=== PATIENT | female | born 1935 | race Caucasian/White ===

== ENCOUNTER 2016-09-01 09:12 | Emergency (ER) | payer MEDICARE ==
[~2016-09-01 09:12] MED LIST: ACET500CAP PO; ALAVERT10 MG PO; BETAPACE80 PO; BIOTIN5 MG OR; BIST PO; BUSPAR10 PO; BYSTOLIC5 MG PO; CATARACTIVE OPH; CELEBREX2 PO; COREG PO; COREG6 PO; ELIQUIS 5 MG TAB5 MG PO; ESTRACE1 MG PO; EXCEDRIN EXTRA1 EACH PO; HEMOCYTE324 MG PO; LEVAQUIN750 MG PO; METAMUCIL CAN7 OZ PO; MULTIVITAMI1 PO; OSTEO BI-FLEX1 EACH PO; PHILLIPS MOM311 M1 PO; PRILO PO; PRILOSEC PO; PROBIOTIC PO; PROTONIX PO; RYTHMOL225 MG PO; STRESS600T PO; ULTRAM50 PO; VITAMIN B-121000 MC1 SL; VITAMIN D31000 UNIT PO; VOLTAREN1 % TOP
== END 2016-09-01 11:25 | disposition home or self-care (01) ==
LOC: ER 09:12
PROC: 0CQ0XZZ Repair Upper Lip, External Approach (ICD-10-PCS; principal; 2016-09-01)
DX: S01.511A Laceration without foreign body of lip, initial encounter (principal); I48.91 Unspecified atrial fibrillation; I10 Essential (primary) hypertension; K21.9 Gastro-esophageal reflux disease without esophagitis; Z85.3 Personal history of malignant neoplasm of breast; Z88.0 Allergy status to penicillin; Z88.2 Allergy status to sulfonamides; Z79.899 Other long term (current) drug therapy; W19.XXXA Unspecified fall, initial encounter
CPT/HCPCS: 70450; 99284; A9270-GY